=== PATIENT | male | born 1950 | race Caucasian/White ===

== ENCOUNTER 2024-01-11 19:38 | Emergency (ER) | payer MEDICARE ==
[~2024-01-11] VITALS: Ht 172.7 cm; Wt 52.2 kg
[2024-01-11 19:45] VITALS: TEMP 98
[2024-01-11] MEDS: SODIUM CHLORIDE 0.9% 1000ML 1,000 ML IV STA (20:50)
[2024-01-11 21:03] LABS: BASOPHILS % 0.5 % (0.0-1.0); HEMATOCRIT 41.1 % (38.2-49.6); HEMOGLOBIN 12.7 g/dL (14.0-18.0); LYMPHOCYTES # (AUTO) 0.6 (1.0-3.2); LYMPHOCYTES % 8.1 % (18.0-39.1); MEAN CORPUSCULAR HEMOGLOBIN 27.8 pg (28-32); MEAN CORPUSCULAR HGB CONC 30.9 g/dL (31-35); MEAN CORPUSCULAR VOLUME 89.9 fL (81-99); MONOCYTES # (AUTO) 0.7 (0.2-0.8); MONOCYTES % 8.4 % (4.4-11.3); NEUTROPHILS # (AUTO) 6.3 (2.1-6.9); NEUTROPHILS % 82.1 % (38.7-80.0); PLATELET COUNT 252 x10e3/uL (140-360); RED BLOOD COUNT 4.57 x10e6/uL (4.3-5.7)
[2024-01-11 21:20] LABS: ALBUMIN 2.9 g/dL (3.5-5.0); ALBUMIN/GLOBULIN RATIO 0.6 (0.8-2.0); ANION GAP 19.2 mmol/L (8-16); BILIRUBIN,TOTAL 0.6 mg/dL (0.2-1.2); CALCIUM 9.7 mg/dL (8.4-10.2); CREATININE, SERUM 0.92 mg/dL (0.72-1.25); POTASSIUM 4.2 mmol/L (3.5-5.1); TOTAL PROTEIN 7.4 g/dL (6.5-8.1)
[2024-01-11 21:26] LABS: TROPONIN I 0.033 ng/mL (0-0.300)
[2024-01-11 21:32] LABS: CLARITY,URINE CLOUDY (CLEAR); COLOR,URINE YELLOW (YELLOW)
[2024-01-11 21:33] LABS: BILIRUBIN,URINE 1+ (NEGATIVE); GLUCOSE, URINE 500 (NEGATIVE); KETONES,URINE 1+ (NEGATIVE); LEUKOCYTE ESTERASE ,URINE 1+ (NEGATIVE); NITRITE,URINE NEGATIVE (NEGATIVE); PH,URINE 6 (5 - 7); PROTEIN,URINE DIPSTICK 2+ (NEGATIVE); URINE UROBILINOGEN 0.2 mg/dL (0.2 - 1)
[2024-01-11 21:43] LABS: WBC,URINE (MAN) >50 /HPF (0-5)
[2024-01-11 21:44] LABS: BACTERIA,URINE MANY /HPF; CALCIUM OXALATE CRYSTALS,UR FEW (FEW); EPITHELIAL CELLS,URINE FEW /LPF; RBC,URINE >50 /HPF (0-5)
[2024-01-11] MEDS ORDERED: AUGMENTIN 500-1 EACH PO (22:05)
[2024-01-11] MEDS: AMOXICILLIN/CLAVULANATE K 500 MG TAB PO STA (22:16)
[2024-01-11 23:00] VITALS: PULSE 94; RESP 20; O2SAT 99
== END 2024-01-11 23:20 | disposition home or self-care (01) ==
LOC: ER 19:46
DX: R06.02 Shortness of breath (principal); K56.41 Fecal impaction; N39.0 Urinary tract infection, site not specified; R94.31 Abnormal electrocardiogram [ECG] [EKG]; I25.2 Old myocardial infarction; Z95.1 Presence of aortocoronary bypass graft
CPT/HCPCS: 36415; 71045; 80053; 81001; 82550; 83690; 83880; 84484; 85025; 87086; 87186; 93005; 99284; J7030